=== PATIENT | male | born 1995 | race Caucasian/White ===

== ENCOUNTER 2020-11-16 04:33 | Emergency (ER) | payer OTHER, SELFPAY ==
--- NOTE | 2020-11-16 04:35 | ED.ALCOHOL ---
HPI - Alcohol General Chief Complaint: Toxicology Problem Stated Complaint: Can't sleep, night sweats, stopped drinking Time Seen by Provider: 11/16/20 04:35 Source: patient Mode of arrival: Ambulatory Limitations: no limitations History of Present Illness HPI narrative: 25-year-old male daily smoker and heavy drinker presents with a chief complaint of difficulty sleeping, agitation for the past few nights. He states that he binge drinking up to 30 beers per day until about a week ago when he quit cold turkey and soon developed significant symptoms including headache, nausea, abdominal pain, tremors and sweating. He wrote it out at home on his own for 5 or 6 days and presents tonight because of difficulty with sleeping. He states he has gone through withdrawals in the past but has never had seizures. He denies any detox or rehab in his history. He denies any use of street drugs. He has had no recent trauma. MD complaint: alcohol withdrawal Last drink: days (ago) Chronic alcohol use: Yes Previous visits for alcohol intoxication: No Recent trauma: No Treatments prior to arrival: none Related Data Previous Rx's Medication Instructions Recorded chlordiazepoxide HCl See Rx Instructions .ROUTE 11/16/20 .COMPLEX PRN #32 cap ondansetron 4 mg PO TID-QID PRN #10 tab 11/16/20 potassium chloride 20 meq PO BID #10 tab 11/16/20 Allergies Allergy/AdvReac Type Severity Reaction Status Date / Time No Known Drug Allergies Allergy Verified 11/16/20 04:44 Review of Systems Constitutional Constitutional: Denies chills, Denies fatigue, Denies fever(s), Denies frequent falls, Denies lethargy and Denies weakness Eyes Eyes: Denies change in vision, Denies eye discharge, Denies irritation and Denies loss of vision ENT Ears, Nose, Mouth, and Throat: Denies change in voice, Denies dizziness, Denies neck pain, Denies sore throat and Denies throat swelling Cardiovascular Cardiovascular: Denies chest pain, Denies irregular heart rhythm, Denies lightheadedness, Denies palpitations, Denies dyspnea, Denies dyspnea on exertion and Denies orthopnea Respiratory Respiratory: Denies cough, Denies dyspnea, Denies dyspnea on exertion and Denies wheezing Gastrointestinal Gastrointestinal: Denies abdominal pain, Denies change in bowel habits, Denies diarrhea, Denies nausea and Denies vomiting Musculoskeletal Musculoskeletal: Denies neck pain and Denies numbness Integumentary/Breasts Skin/Breast: Denies pruritus, Denies erythema, Denies rash and Denies wounds Neurologic Neurologic: Denies behavioral changes, Denies confusion, Denies dizziness, Denies frequent falls, Denies loss of vision, Denies numbness and Denies weakness Psychiatric Psychiatric: Denies anxiety, Denies behavioral changes, Denies confusion, Denies depression, Reports irritability, Denies homicidal ideation and Denies suicidal ideation Endocrine Endocrine: Denies fatigue, Denies flushing and Denies palpitations Hematologic/Lymphatic Hematologic/Lymphatic: Denies easy bruising Allergic/Immunologic Allergic/Immunologic: Denies urticaria, Denies throat swelling and Denies wheezing Patient History Social History Smoking Status: Current every day smoker Smoking Status: Current every day smoker alcohol intake frequency: 3 or more drinks per day Alcohol type: beer Substance Use Type: marijuana Exam Narrative Exam Narrative: GENERAL: [25] year old patient appears stated age. Well-nourished, well-developed patient, in mild distress. Appears a bit agitated, GCS 15 HEAD: Atraumatic. Normocephalic. EYES: Pupils equal round and reactive. Extraocular motions intact. No scleral icterus. No injection or drainage. ENT: Nose without bleeding, purulent drainage. Throat without erythema, tonsillar hypertrophy or exudate. Airway patent. NECK: Trachea midline. Non tender CARDIOVASCULAR: Regular rate and rhythm without murmurs, gallops, or rubs. RESPIRATORY: Clear to auscultation. Breath sounds equal bilaterally. No wheezes, rales, or rhonchi. GASTROINTESTINAL: Abdomen soft, non-tender, nondistended. EXTREMITIES: No edema or joint tenderness. BACK: Nontender without deformity or crepitance. No flank tenderness. NEURO: AOx3. SKIN: No rash or erythema of visible areas Initial Vital Signs Initial Vital Signs: Vital Signs Temperature 98.3 F 11/16/20 04:49 Pulse Rate 72 11/16/20 04:49 Respiratory Rate 17 11/16/20 04:49 Blood Pressure 143/91 H 11/16/20 04:49 Pulse Oximetry 97 11/16/20 04:49 Course Course Course Narrative: Cate for Alcohol Withdrawal from [employer] on 11/16/2020 All calculations should be rechecked by clinician prior to use RESULT SUMMARY: 9 points Patients with scores ?9 may require medication for withdrawal. INPUTS: Nausea/vomiting ?> 1 = Mild nausea and no vomiting Tremor ?> 2 = (More severe symptoms) Paroxysmal sweats ?> 0 = No sweat visible Anxiety ?> 2 = (More severe symptoms) Agitation ?> 2 = (More severe symptoms) Tactile disturbances ?> 0 = None Auditory disturbances ?> 0 = Not present Visual disturbances ?> 0 = Not present Headache/fullness in head ?> 2 = Mild Orientation/clouding of sensorium ?> 0 = Oriented, can do serial additions Orders Ordered: Discontinued Medications Sodium Chloride (Normal Saline 0.9%) 1,000 mls @ 1,000 mls/hr IV BOLUS ONE Stop: 11/16/20 05:53 Last Infusion: 11/16/20 06:18 Dose: 0 mls/hr Documented by: Admin: 11/16/20 05:07 Dose: 1,000 mls/hr Documented by: ANDREA Thiamine HCl 200 mg/ Sodium (Chloride) 52 mls @ 208 mls/hr IV NOW ONE Stop: 11/16/20 04:55 Last Infusion: 11/16/20 05:40 Dose: 0 mls/hr Documented by: Admin: 11/16/20 05:18 Dose: 208 mls/hr Documented by: ANDREA Phenobarbital (Phenobarbital 65 Mg/Ml Vial) 260 mg IV NOW ONE Stop: 11/16/20 04:55 Last Admin: 11/16/20 05:07 Dose: 260 mg Documented by: ANDREA Potassium Chloride (Potassium Chloride 20 Meq Tab) 40 meq PO NOW ONE Stop: 11/16/20 05:18 Last Admin: 11/16/20 05:20 Dose: 40 meq Documented by: ANDREA Vital Signs Vital signs: Vital Signs - 8 hr 11/16/20 04:49 11/16/20 05:00 11/16/20 05:31 Temperature 98.3 F Pulse Rate 77 69 79 Respiratory Rate 18 18 20 Blood Pressure 145/97 H 148/98 H 168/101 H Pulse Oximetry 99 99 99 11/16/20 06:01 Temperature Pulse Rate 79 Respiratory Rate 21 Blood Pressure 160/93 H Pulse Oximetry 100 MDM - Alcohol Lab Data Result diagrams: 11/16/20 04:45 11/16/20 04:45 Labs: Lab Results 11/16/20 11/16/20 Range/Units 04:45 04:45 WBC 7.6 (4.5-11.0) X10^3/uL RBC 4.54 (4.5-5.9) X10^6/uL Hgb 15.6 (13.5-17.5) g/dL Hct 44.9 (41-53) % MCV 98.8 (80-100) fL MCH 34.4 H (26-34) PG MCHC 34.8 (30-36) % RDW 12.9 (11.6-14.8) % Plt Count 188 (150-400) X10^3/uL Neut % (Auto) 73.9 (50-75) % Lymph % (Auto) 12.4 L (25-40) % [place] % (Auto) 9.1 (3-14) % Eos % (Auto) 2.0 (2-4) % Baso % (Auto) 2.6 H (0-2) % Neut # (Auto) 5600 (8478-4778) /uL Lymph # (Auto) 900 L (8904-2161) /uL [place] # (Auto) 700 (0-900) /uL Eos # (Auto) 200 (0-450) /uL Baso # (Auto) 200 H (0-100) /uL Sodium 131 L (137-145) mmol/L Potassium 3.0 L (3.4-5.1) mmol/L Chloride 91 L (98-107) mmol/L Carbon Dioxide 27 (22-32) mmol/L BUN 13 (9-20) mg/dL Creatinine 0.71 (0.66-1.25) mg/dL Estimated GFR > 60.0 (>60) mL/min BUN/Creatinine Ratio 18.3 (6-22) Glucose 99 (70-100) mg/dL Calcium 10.0 (8.4-10.2) mg/dL Total Bilirubin 1.4 H (0.2-1.3) mg/dL AST 217 H (17-59) IU/L ALT 179 H (<50) IU/L Alkaline Phosphatase 93 (38-126) U/L Total Protein 8.5 H (6.3-8.2) g/dL Albumin 5.1 H (3.5-5.0) g/dL Globulin 3.4 (1.7-4.1) g/dL Albumin/Globulin Ratio 1.5 (1.0-2.8) MDM Narrative Medical decision making narrative: Patient feels much better after the above-stated therapies. He has good insight and demonstrates capacity to make his own decisions. His CIWA score is quite low and we are a few days removed from his severe symptoms. No sign of alcohol ketoacidosis or other significant metabolic derangement. His potassium is a bit low and has been addressed here in the department along with prescriptions. His questions have been answered to his apparent satisfaction. Return precautions given. Discharge Plan Departure Patient Disposition: Home Clinical Impression: Acute hypokalemia Alcohol withdrawal syndrome Qualifiers: Complication of substance-induced condition: uncomplicated Qualified Code(s): F10.230 - Alcohol dependence with withdrawal, uncomplicated Instructions: DI for Alcohol Use Disorder Activity Restrictions/Additional Instructions: *You have been diagnosed with [ alcohol withdrawal and low potassium ] *What to do: *Take medications as directed *Follow up with your primary care provider in 2-3 days, call for an appointment. Let them know you were seen in the Emergency Department and that we ask that you be seen in follow up *Return to ER if you should have any new, worsening or concerning symptoms Prescriptions: New potassium chloride 20 mEq tablet extended release 20 meq PO BID Qty: 10 RF: 0 ondansetron 4 mg tablet,disintegrating 4 mg PO TID-QID PRN (Reason: nausea and vomiting) Qty: 10 RF: 0 chlordiazepoxide HCl 25 mg capsule See Rx Instructions .ROUTE .COMPLEX PRN (Reason: alcohol withdrawal) Qty: 32 RF: 0 Referrals: [facility] [Outside] [facility] [Outside] [facility] [Outside] [facility] [Outside]
[2020-11-16 04:49] VITALS: BP 143/91; BP 145/97; PULSE 72; PULSE 77; RESP 17; RESP 18; TEMP 36.8; O2SAT 97; O2SAT 99; BMI 29.5
[2020-11-16 05:00] VITALS: BP 148/98; PULSE 69; RESP 18; O2SAT 99
[2020-11-16 05:07] LABS: Add Manual Diff / Slide Review NO; Basophils Absolute Auto 200 /uL (0-100); Basophils Percent Auto 2.6 % (0-2); Eosinophils Absolute Auto 200 /uL (0-450); Hematocrit 44.9 % (41-53); Hemoglobin 15.6 g/dL (13.5-17.5); Lymphocytes Absolute Auto 900 /uL (1100-4500); Lymphocytes Percent Auto 12.4 % (25-40); Mean Corpuscular HGB Conc 34.8 % (30-36); Mean Corpuscular Hemoglobin 34.4 PG (26-34); Mean Corpuscular Volume 98.8 fL (80-100); Monocytes Absolute Auto 700 /uL (0-900); Monocytes Percent Auto 9.1 % (3-14); Neutrophils Absolute Auto 5600 /uL (1500-7000); Neutrophils Percent Auto 73.9 % (50-75); Platelet Count 188 X10^3/uL (150-400); Red Blood Cell Count 4.54 X10^6/uL (4.5-5.9); Red Cell Distribution Width 12.9 % (11.6-14.8); White Blood Cell Count 7.6 X10^3/uL (4.5-11.0)
[2020-11-16] MEDS: PHENobarbital 65 MG/ML VIAL 260 MG IV (05:07)
[2020-11-16] MEDS: SODIUM CHLORIDE 0.9% 1,000 ML 1000 ML IV (05:07)
[2020-11-16 05:10] LABS: Alanine Aminotransferase 179 IU/L (<50); Albumin 5.1 g/dL (3.5-5.0); Albumin Globulin Ratio 1.5 (1.0-2.8); Alkaline Phosphatase 93 U/L (38-126); Aspartate Aminotransferase 217 IU/L (17-59); BUN Creatinine Ratio 18.3 (6-22); Bilirubin Total 1.4 mg/dL (0.2-1.3); Blood Urea Nitrogen 13 mg/dL (9-20); Carbon Dioxide 27 mmol/L (22-32); Chloride 91 mmol/L (98-107); Estimated Glomerular Filt Rate > 60.0 mL/min (>60); Globulin 3.4 g/dL (1.7-4.1); Glucose 99 mg/dL (70-100); HEMOLYSIS 15 (0-50); Sodium 131 mmol/L (137-145); Total Protein 8.5 g/dL (6.3-8.2)
[2020-11-16] MEDS: THIAMINE 200 MG in SODIUM CHLORIDE 0.9% 50 ML 208 ML IV (05:18)
[2020-11-16] MEDS: POTASSIUM CHLORIDE 20 MEQ TAB 40 MEQ PO (05:20)
[2020-11-16 05:31] VITALS: BP 168/101; PULSE 79; RESP 20; O2SAT 99
[2020-11-16 06:01] VITALS: BP 160/93; PULSE 79; RESP 21; O2SAT 100
== END 2020-11-16 06:22 | disposition home or self-care (01) ==
PROVIDERS: Emergency Provider Emergency Medicine
DX: E87.6 Hypokalemia (principal); F10.230 Alcohol dependence with withdrawal, uncomplicated
CPT/HCPCS: 36415; 80053; 85025; 96361; 96374; 99284; J2560

== ENCOUNTER 2022-04-29 21:31 | Inpatient (IN) | payer OTHER, MEDICAID, SELFPAY ==
[2022-04-29 21:40] VITALS: BP 147/78; PULSE 95; RESP 22; O2SAT 99; BMI 23.1
[2022-04-29 21:43] VITALS: PULSE 91; RESP 25; O2SAT 98
[2022-04-29 22:00] VITALS: BP 150/88; PULSE 78; RESP 21; O2SAT 98
[2022-04-29 22:06] LABS: Add Manual Diff / Slide Review NO; Basophils Absolute Auto 0 /uL (0-100); Basophils Percent Auto 0.7 % (0-2); Eosinophils Absolute Auto 0 /uL (0-450); Eosinophils Percent Auto 0.3 % (2-4); Hematocrit 40.8 % (41-53); Hemoglobin 14.1 g/dL (13.5-17.5); Lymphocytes Absolute Auto 1000 /uL (1100-4500); Lymphocytes Percent Auto 18.4 % (25-40); Mean Corpuscular HGB Conc 34.6 % (30-36); Mean Corpuscular Hemoglobin 33.9 PG (26-34); Mean Corpuscular Volume 97.7 fL (80-100); Monocytes Absolute Auto 900 /uL (0-900); Monocytes Percent Auto 16.1 % (3-14); Neutrophils Absolute Auto 3600 /uL (1500-7000); Neutrophils Percent Auto 64.5 % (50-75); Platelet Count 152 X10^3/uL (150-400); Red Blood Cell Count 4.18 X10^6/uL (4.5-5.9); Red Cell Distribution Width 14.7 % (11.6-14.8); White Blood Cell Count 5.6 X10^3/uL (4.5-11.0)
[2022-04-29] MEDS: SODIUM CHLORIDE 0.9% 1,000 ML 1000 ML IV (22:08)
[2022-04-29] MEDS: THIAMINE 200 MG in SODIUM CHLORIDE 0.9% 100 ML 408 MG IV (22:08)
[2022-04-29 22:14] LABS: Alanine Aminotransferase 186 IU/L (<50); Albumin 4.7 g/dL (3.5-5.0); Albumin Globulin Ratio 1.5 (1.0-2.8); Alkaline Phosphatase 81 U/L (38-126); Aspartate Aminotransferase 120 IU/L (17-59); BUN Creatinine Ratio 9.4 (6-22); Bilirubin Total 0.8 mg/dL (0.2-1.3); Blood Urea Nitrogen 6 mg/dL (9-20); Calcium 9.5 mg/dL (8.4-10.2); Carbon Dioxide 25 mmol/L (22-32); Chloride 97 mmol/L (98-107); Estimated Glomerular Filt Rate > 60 mL/min (>60); Globulin 3.1 g/dL (1.7-4.1); Glucose 141 mg/dL (70-100); HEMOLYSIS 21 (0-50); Lipase 68 U/L (23-300); Magnesium 1.8 mg/dL (1.6-2.3); Potassium 3.7 mmol/L (3.4-5.1); Sodium 134 mmol/L (137-145); Total Protein 7.8 g/dL (6.3-8.2)
[2022-04-29 22:30] VITALS: BP 164/78; PULSE 89; RESP 30; O2SAT 98
[2022-04-29] MEDS: PHENobarbital 65 MG/ML VIAL 260 MG IV (22:36)
[2022-04-29 22:37] LABS: Ethanol (ETOH) < 10 mg/dL
[2022-04-29 22:38] LABS: COVID19 -Nasal RAPID Negative (Negative)
--- NOTE | 2022-04-29 22:47 | ED_ITS ---
HPI - Alcohol General Chief Complaint: Toxicology Problem Stated Complaint: wants meds for alcohol dt's Time Seen by Provider: 04/29/22 21:47 Source: patient and family Mode of arrival: Ambulatory History of Present Illness HPI narrative: 26M daily smoker and heavy drinker with history of alcohol abuse, withdrawals and DTs presents requesting help for his symptoms. He is a very heavy drinker and states that he has been drinking 2 cases of 60 oz beers per day but has not had any in about 2 days. He had been seen and evaluated at a few other emergency departments but left against advice and is here requesting help. He feels agitated and a bit lightheaded, he feels shaky and nauseated. He does have a resting tremor. He states that he occasionally has visual and auditory hallucinations and even tactile on occasion. He has been through DTs in the past and most recent episode was a few months ago. Related Data Previous Rx's Medication Instructions Recorded chlordiazepoxide HCl 25 mg capsule See Rx Instructions .Route 11/16/20 .COMPLEX PRN alcohol withdrawal #32 caps ondansetron 4 mg disintegrating 4 mg PO TID-QID PRN nausea and 11/16/20 tablet vomiting #10 tabs potassium chloride 20 mEq 20 meq PO BID #10 tabs 11/16/20 tablet,extended release Allergies Allergy/AdvReac Type Severity Reaction Status Date / Time No Known Drug Allergies Allergy Verified 11/16/20 04:44 Review of Systems Review of Systems Narrative: GENERAL: See HPI HEENT: Denies sinus pain, ear pain, sore throat, difficulty swallowing, dizz iness. RESPIRATORY: See HPI CARDIOVASCULAR: See HPI GASTROINTESTINAL: See HPI : Denies dysuria, frequency, incontinence, hematuria, urinary retention. MUSCULOSKELETAL: denies weakness, joint pain, or bony pain SKIN: Denies rash, skin lesions, or other NEUROLOGIC: See HPI PSYCHIATRIC: No concerning psychosocial issues. 12 point review of systems is negative except for those stated above Patient History Social History Smoking Status: Current every day smoker Smoking Status: Current every day smoker alcohol intake frequency: 3 or more drinks per day Alcohol type: beer Substance Use Type: marijuana Exam Narrative Exam Narrative: GENERAL: [26] year old patient appears stated age. Well-developed patient, in moderate distress. Agitated and restless HEAD: Atraumatic. Normocephalic. EYES: Pupils equal round and reactive. Extraocular motions intact. No scleral icterus. No injection or drainage. ENT: Nose without bleeding, purulent drainage. Throat without erythema, tonsillar hypertrophy or exudate. Airway patent. NECK: Trachea midline. Non tender CARDIOVASCULAR: Tachycardia but regular rhythm without murmurs, gallops, or rubs. RESPIRATORY: Clear to auscultation. Breath sounds equal bilaterally. No wheezes, rales, or rhonchi. GASTROINTESTINAL: Abdomen soft, non-tender, nondistended. EXTREMITIES: No edema or joint tenderness. BACK: Nontender without deformity or crepitance. No flank tenderness. NEURO: AOx3. Resting tremor SKIN: No rash or erythema of visible areas Initial Vital Signs Initial Vital Signs: Vital Signs Pulse Rate 95 H 04/29/22 21:40 Respiratory Rate 22 04/29/22 21:40 Blood Pressure 147/78 H 04/29/22 21:40 Pulse Oximetry 99 04/29/22 21:40 Oxygen Delivery Method 04/29/22 21:40 Course Course Course Narrative: PETRA-Joselo for Alcohol Withdrawal from [employer] on 04/30/2022 All calculations should be rechecked by clinician prior to use RESULT SUMMARY: 23 points Patients with scores >=0 frequently require medication for withdrawal, and may also require admission to the ICU for observation for seizures or development of delirium tremens, and more frequent medication dosing. INPUTS: Nausea/vomiting ?> 3 = (More severe symptoms) Tremor ?> 4 = Moderate, with patient's arms extended Paroxysmal sweats ?> 2 = (More severe symptoms) Anxiety ?> 4 = Moderately anxious, or guarded, so anxiety is inferred Agitation ?> 4 = Moderately fidgety and restless Tactile disturbances ?> 2 = Mild itching, pin and needles, burning, or numbness Auditory disturbances ?> 2 = Mild harshness or ability to frighten Visual disturbances ?> 2 = Mild sensitivity Headache/fullness in head ?> 0 = Not Present Orientation/clouding of sensorium ?> 0 = Oriented, can do serial additions Orders Ordered: ED Orders 04/29/22 21:47 Complete Blood Count AUTO DIFF Stat Comprehensive Metabolic Panel Stat Ethanol (ETOH) Stat Lipase Stat Magnesium Stat Urine Drug Screen, Rapid Stat 04/29/22 22:15 COVID19 -Nasal RAPID/Pre-Proc Stat Acetaminophen (Acetaminophen 325 Mg Tablet) 650 mg PO Q8H PRN PRN Reason: Fever/Mild Pain (1-3) Enoxaparin Sodium (Enoxaparin 40 Mg/0.4 Ml Syringe) 40 mg SUBCUT DAILY [facility] Folic Acid (Folic Acid 1 Mg Tablet) 1 mg PO DAILY [facility] Thiamine HCl 500 mg/ Sodium (Chloride) 105 mls @ 420 mls/hr IV TID [facility] Multivitamins (Multivitamin 1 Tablet) 1 tab PO DAILY [facility] Ondansetron HCl (Ondansetron 4 Mg/2 Ml Inj) 4 mg IV Q8HR PRN PRN Reason: Nausea And Vomiting Phenobarbital (Phenobarbital 65 Mg/Ml Vial) 130 mg IV Q30MIN PRN PRN Reason: Agitation Sodium Chloride (Sodium Chloride 0.9% Flush) 10 ml IV PRN PRN PRN Reason: Flush Sodium Chloride (Sodium Chloride 0.9% Flush) 10 ml IV BID BERTRAND Discontinued Medications Sodium Chloride (Normal Saline 0.9%) 1,000 mls @ 1,000 mls/hr IV BOLUS ONE Stop: 04/29/22 22:46 Last Infusion: 04/29/22 23:37 Dose: 0 mls/hr Documented By: Admin: 04/29/22 22:08 Dose: 1,000 mls/hr Documented By: MARIE Thiamine HCl 200 mg/ Sodium (Chloride) 102 mls @ 408 mls/hr IV NOW ONE Stop: 04/29/22 21:48 Last Infusion: 04/29/22 22:25 Dose: 0 mls/hr Documented By: Admin: 04/29/22 22:08 Dose: 408 mls/hr Documented By: MARIE Phenobarbital (Phenobarbital 65 Mg/Ml Vial) 260 mg IV NOW ONE Stop: 04/29/22 22:08 Last Admin: 04/29/22 22:36 Dose: 260 mg Documented By: MARIE Phenobarbital (Phenobarbital 65 Mg/Ml Vial) 130 mg IV NOW ONE Stop: 04/29/22 23:11 Last Admin: 04/29/22 23:32 Dose: 130 mg Documented By: KALI Phenobarbital (Phenobarbital 65 Mg/Ml Vial) 130 mg IV NOW ONE Stop: 04/30/22 00:21 Last Admin: 04/30/22 00:27 Dose: 130 mg Documented By: OW Thiamine HCl (Thiamine 100 Mg Tablet) 100 mg PO DAILY BERTRAND Stop: 05/03/22 09:01 Vital Signs Vital signs: Vital Signs - 8 hr 04/29/22 21:40 04/29/22 21:43 04/29/22 22:00 Pulse Rate 95 H 91 H Respiratory Rate 22 25 H Blood Pressure 147/78 H 150/88 H Pulse Oximetry 99 98 Oxygen Delivery Method Room Air Room Air 04/29/22 22:00 04/29/22 22:30 04/29/22 22:30 Pulse Rate 78 89 Respiratory Rate 21 30 H Blood Pressure 164/78 H Pulse Oximetry 98 98 Oxygen Delivery Method Room Air Room Air 04/29/22 23:00 04/29/22 23:30 Pulse Rate 75 70 Respiratory Rate 19 15 Blood Pressure 144/85 H 147/79 H Pulse Oximetry 99 97 Oxygen Delivery Method Room Air Room Air MDM - Alcohol Lab Data Result diagrams: 04/29/22 21:47 04/29/22 21:47 Labs: Lab Results 04/29/22 04/29/22 04/29/22 Range/Units 21:47 21:47 22:15 WBC 5.6 (4.5-11.0) X10^3/uL RBC 4.18 L (4.5-5.9) X10^6/uL Hgb 14.1 (13.5-17.5) g/dL Hct 40.8 L (41-53) % MCV 97.7 (80-100) fL MCH 33.9 (26-34) PG MCHC 34.6 (30-36) % RDW 14.7 (11.6-14.8) % Plt Count 152 (150-400) X10^3/uL Neut % (Auto) 64.5 (50-75) % Lymph % (Auto) 18.4 L (25-40) % [place] % (Auto) 16.1 H (3-14) % Eos % (Auto) 0.3 L (2-4) % Baso % (Auto) 0.7 (0-2) % Neut # (Auto) 3600 (8015-7801) /uL Lymph # (Auto) 1000 L (0586-9667) /uL [place] # (Auto) 900 (0-900) /uL Eos # (Auto) 0 (0-450) /uL Baso # (Auto) 0 (0-100) /uL Sodium 134 L (137-145) mmol/L Potassium 3.7 (3.4-5.1) mmol/L Chloride 97 L (98-107) mmol/L Carbon Dioxide 25 (22-32) mmol/L BUN 6 L (9-20) mg/dL Creatinine 0.64 L (0.66-1.25) mg/dL Estimated GFR > 60 (>60) mL/min BUN/Creatinine Ratio 9.4 (6-22) Glucose 141 H (70-100) mg/dL Calcium 9.5 (8.4-10.2) mg/dL Magnesium 1.8 (1.6-2.3) mg/dL Total Bilirubin 0.8 (0.2-1.3) mg/dL AST 120 H (17-59) IU/L ALT 186 H (<50) IU/L Alkaline Phosphatase 81 (38-126) U/L Total Protein 7.8 (6.3-8.2) g/dL Albumin 4.7 (3.5-5.0) g/dL Globulin 3.1 (1.7-4.1) g/dL Albumin/Globulin Ratio 1.5 (1.0-2.8) Lipase 68 (23-300) U/L Ethyl Alcohol < 10 ( - 10) mg/dL SARS-CoV-2 (PCR) Negative (Negative) Discharge Plan Departure Patient Disposition: Admitted As Inpatient Clinical Impression: Delirium tremens Admit Date/Time: 04/30/22 00:26 Admit Provider: Sam Desai
[2022-04-29 23:00] VITALS: BP 144/85; PULSE 75; RESP 19; O2SAT 99
[2022-04-29 23:30] VITALS: BP 147/79; PULSE 70; RESP 15; O2SAT 97
[2022-04-29] MEDS: PHENobarbital 65 MG/ML VIAL 130 MG IV (23:32)
[2022-04-30] VITALS (50 sets, daily range): BP systolic 104–148; BP diastolic 62–87; PULSE 58–100; RESP 12–54; TEMP 36.7–37; O2SAT 94–100; BMI 23.1
--- NOTE | 2022-04-30 00:02 | PC.NURSE ---
Pt's mother pressed call light and when this RN answered, pt was sitting in bed restlessly. He stated, that he wanted to leave. Pt's mother reported that he was talking as if someone was in the room conversing with him. This RN redirected him to why he was in the ED and pt responded by stating that he understood and would stay. After conversation pt continues to sit up straight in bed fidgeting his hands and staring at staff at the nurse's station. Pt is close to nurse's station and this RN will continue to monitor pt. Pt's mother and pt know to use the call light if anything is needed.
[2022-04-30] MEDS: PHENobarbital 65 MG/ML VIAL 130 MG IV ×7 (00:27→05:34)
--- NOTE | 2022-04-30 01:13 | P.HP_ITS ---
History of Present Illness History of Present Illness Date Patient Seen: 04/30/22 Time Patient Seen: 01:00 Chief complaint: wants meds for alcohol dt's Narrative: Mr. Poe is a 26M with H significant alcohol abuse who presents requesting detox. He has been hospitalized for alcohol withdrawal in the past, has had DTs, possible previous alcoholic seizure. No history of being intubated. He has been to rehab multiple times. He has previously taken a medication to decrease cravings, but said it did not work for him. Over the past few days he has been to multiple other hospitals in the area and states he left against medical advice. Today he states he is in a better mental space and is willing to stay for treatment. He drinks at least a case of tall boys daily. His last drink was 3-4 days ago. He was having hallucinations yesterday. He was feeling headache, nausea, diaphoresis, and trembling. In the ED workup was done, vitals notable for heart rate in the 90s, and blood pressure in the 140-160s systolic. Labs notable for WBC 5.6 ,hgb 14.1, plts 152. Creatinine 0.64. AST 120/ALT 186. EtOH negative. He was given three doses of phenobarbital in the ED 260mg, followed by 130mg two times. He was feeling much improved with resolution of headache, sweats, and only mild nausea, and tremors. He was admitted for further treatment. Family history: denies any significant alcohol abuse in parents Social history: drinking history as above Patient History Family & Social History Safety & Behavioral: Feels Safe in Current Yes Environment Suicidal Ideation Description None Suicide Plan Description No Plan Tobacco & Substance use: Smoking Status Current every day smoker alcohol intake frequency 3 or more drinks per day Substance Use Type marijuana Meds Home Medications and Allergies Home Medications Medication Instructions Recorded Confirmed Type chlordiazepoxide HCl 25 mg capsule See Rx Instructions .Route 11/16/20 Rx .COMPLEX PRN alcohol withdrawal #32 caps ondansetron 4 mg disintegrating 4 mg PO TID-QID PRN nausea and 11/16/20 Rx tablet vomiting #10 tabs potassium chloride 20 mEq 20 meq PO BID #10 tabs 11/16/20 Rx tablet,extended release Allergies Allergy/AdvReac Type Severity Reaction Status Date / Time No Known Drug Allergies Allergy Verified 11/16/20 04:44 Review of Systems Review of Systems Narrative: 14 systems reviewed and negative aside from what is noted in HPI Exam Vital Signs (past 8 hours): - 04/29/22 21:40 04/29/22 21:43 04/29/22 22:00 Pulse Rate 95 H 91 H Respiratory Rate 22 25 H Blood Pressure 147/78 H 150/88 H Pulse Oximetry 99 98 Oxygen Delivery Method Room Air Room Air 04/29/22 22:00 04/29/22 22:30 04/29/22 22:30 Pulse Rate 78 89 Respiratory Rate 21 30 H Blood Pressure 164/78 H Pulse Oximetry 98 98 Oxygen Delivery Method Room Air Room Air 04/29/22 23:00 04/29/22 23:30 04/30/22 00:30 Pulse Rate 75 70 72 Respiratory Rate 19 15 23 Blood Pressure 144/85 H 147/79 H 142/83 H Pulse Oximetry 99 97 99 Oxygen Delivery Method Room Air Room Air Room Air Oxygen Delivery Method Room Air Narrative Exam Narrative: GEN: fidgeting HEENT: moist mucous membranes, PERRL NECK: trachea midline, no JVD PULM: clear bilaterally, no wheezes, rhonchi, rales CV: regular rate and rhythm, no murmurs ABD: soft, nontender, nondistended, no organomegaly EXT: warm and well perfused with no edema NEURO: awake, alert, oriented, mild tremor Objective Labs Result Diagrams: 04/29/22 21:47 04/29/22 21:47 Labs: Laboratory Results - last 24 hr 04/29/22 04/29/22 04/29/22 21:47 21:47 22:15 WBC 5.6 RBC 4.18 L Hgb 14.1 Hct 40.8 L MCV 97.7 MCH 33.9 MCHC 34.6 RDW 14.7 Plt Count 152 Neut % (Auto) 64.5 Lymph % (Auto) 18.4 L [place] % (Auto) 16.1 H Eos % (Auto) 0.3 L Baso % (Auto) 0.7 Neut # (Auto) 3600 Lymph # (Auto) 1000 L [place] # (Auto) 900 Eos # (Auto) 0 Baso # (Auto) 0 Sodium 134 L Potassium 3.7 Chloride 97 L Carbon Dioxide 25 BUN 6 L Creatinine 0.64 L Estimated GFR > 60 BUN/Creatinine Ratio 9.4 Glucose 141 H Calcium 9.5 Magnesium 1.8 Total Bilirubin 0.8 AST 120 H ALT 186 H Alkaline Phosphatase 81 Total Protein 7.8 Albumin 4.7 Globulin 3.1 Albumin/Globulin Ratio 1.5 Lipase 68 Ethyl Alcohol < 10 SARS-CoV-2 (PCR) Negative Assessment & Plan Assessment & Plan narrative: Mr. Hood is a 26M with alcohol abuse who presents with alcohol withdrawal and delirium tremens. 1. Acute alcohol withdrawal, with DTs, with alcohol abuse causing hepatitis -patient improved greatly with phenobarb in the ED -for now continue with phenobarb PRN with 130mg IV q30min PRN for RASS>0 -once patient more stable, plan to transition to possible taper -given DTs ordered for high dose thiamine with 500mg IV TID, for 2 days, and then can decrease to lower dose -ordered MVI, folate -SW consult in the morning -patient states not interested in rehab on [place], he is planning to move to [place] in a few months and will consider rehab then -advised patient to refrain completely from alcohol -mildly elevated AST/ALT, continue to trend in AM to make sure downtrending CODE: Full Proxy: Perla Hood, mother I have utilized all available resources to reconcile the patient's home medications Time Spent With Patient Critical Care time: I spent a total of [] minutes of critical care time on this patient's care today; this time is exclusive of procedural time. Quality MIPS - Admit I confirm the patient?s Advance Care Plan is present, Code status is documented, Surrogate decision maker is in patient?s record [If Yes, STOP here]: Yes
[2022-04-30] MEDS: NICOTINE 14 PATCH 14 MG TOP (03:06)
[2022-04-30 03:41] LABS: UR Morphine/Opiate cutoff 300 Negative (Negative); Ur Creatinine 50 (Normal); Ur Specific Gravity >1.030 (Normal); Urine Amphetamines Negative (Negative); Urine Barbiturates Positive (Negative); Urine Benzodiazepines Positive (Negative); Urine Cocaine Negative (Negative); Urine MDMA Negative (Negative); Urine Methadone Negative (Negative); Urine Methamphetamines Negative (Negative); Urine Oxycodone Negative (Negative); Urine Phencyclidine Negative (Negative); Urine Tetrahydrocannabinol Positive (Negative); Urine Tricyclic Antidepressant Negative (Negative); Urine pH 5 (Normal)
--- NOTE | 2022-04-30 05:51 | PC.NURSE ---
Addendum entered by Elizabeth Cueva R.N. 04/30/22 07:38: As preceptor, I agree with Heather RNs assessment, interventions, documentation, and evaluation. Original Note: Pt arrived in ICU around 0130 this morning. A&OX4, lungs clear, heart rate and rhythm WNL. Vitals unremarkable. Having hallucinations and slight tremors. Pt was calm and cooperative upon arrival, but soon became agitated, anxious and paranoid. Has attempted to leave AMA twice. Hospitalist and security were called, along with ED doc pt was familiar with to calm him down. Had a spell where he was calm, but soon became agitated, paranoid and anxious again. Trying to control with phenobarbital. Has received 6 doses of 130 mg IV phenobarbital since coming to ICU. Pt currently in room with mom, still anxious, paranoid and agitated but intermittently redirectable.
[2022-04-30 06:45] LABS: Alanine Aminotransferase 162 IU/L (<50); Albumin 4.4 g/dL (3.5-5.0); Albumin Globulin Ratio 1.6 (1.0-2.8); Alkaline Phosphatase 82 U/L (38-126); Aspartate Aminotransferase 117 IU/L (17-59); BUN Creatinine Ratio 5.2 (6-22); Bilirubin Total 0.8 mg/dL (0.2-1.3); Bilirubin Unconjugated 0.7 mg/dL (0.0-1.1); Blood Urea Nitrogen 3 mg/dL (9-20); Calcium 8.8 mg/dL (8.4-10.2); Carbon Dioxide 25 mmol/L (22-32); Chloride 97 mmol/L (98-107); Estimated Glomerular Filt Rate > 60 mL/min (>60); Globulin 2.7 g/dL (1.7-4.1); Glucose 81 mg/dL (70-100); HEMOLYSIS 16 (0-50); Magnesium 1.7 mg/dL (1.6-2.3); Phosphorous 1.5 mg/dL (2.5-4.5); Potassium 3.7 mmol/L (3.4-5.1); Sodium 132 mmol/L (137-145); Total Protein 7.1 g/dL (6.3-8.2)
[2022-04-30] MEDS: chlordiazePOXIDE 25 MG CAPSULE 75 MG PO ×3 (07:51→21:00)
[2022-04-30] MEDS: LORazepam 1 MG TABLET PO (07:52)
--- NOTE | 2022-04-30 08:10 | P.TELICUCN_ITS ---
History of Present Illness Consult details IF CAMERA ACTIVATED, patient seen via real-time interactive audiovisual communication: Camera activated Date Patient Seen: 04/30/22 Chief complaint: wants meds for alcohol dt's Reason for consult: Alcohol withrawal Requesting provider: Duke Doe Consent obtained for tele-accounting supervisor care: Yes Patient Location: ICU Provider location (State): [place] Other participants/roles: RN Narrative: Pateint is a 26 year old male with history of alcohol abuse who is admitted to ICU for alcohol detox. Per report, patient has been hospitalized for alcohol withdrawal and DTs in the past. Last drink was 3 days ago. On admission, he was started on phenobarb therapy and attempting to leave AMA. Decision was made to admit pateint to ICU anticipating patient may need precedex infusion. Subjectively patient reports feeling fine. Denies chest pain, N/V, fever/chils, vision changes, headache. He reports hearing voice telling him to steal car. Started on librium therapy. [facility] Social History household members: family Smoking Status: Current every day smoker Current Medications Current Medications Medications: Home Medications chlordiazepoxide HCl 25 mg capsule See Rx Instructions .Route .COMPLEX PRN alcohol withdrawal #32 caps 11/16/20 [Rx] ondansetron 4 mg disintegrating tablet 4 mg PO TID-QID PRN nausea and vomiting #10 tabs 11/16/20 [Rx] potassium chloride 20 mEq tablet,extended release 20 meq PO BID #10 tabs 11/16/20 [Rx] Visit Medications (administered) Generic Name Dose Route Start Last Admin Trade Name Talibq PRN Reason Stop Dose Admin Chlordiazepoxide HCl 75 mg 04/30/22 08:00 04/30/22 07:51 Chlordiazepoxide 25 Mg Capsule PO 75 mg Q6H BERTRAND Administration Lorazepam 0 mg 04/30/22 06:53 04/30/22 07:52 Lorazepam 1 Mg Tablet PO 2 mg CIWAPRN PRN Administration Alcohol Withdrawal Protocol Phenobarbital 130 mg 04/30/22 01:46 04/30/22 05:34 Phenobarbital 65 Mg/Ml Vial IV 130 mg Q30MIN PRN Administration Agitation Exam Vital Signs (past 8 hours): - 04/30/22 00:30 04/30/22 01:31 04/30/22 01:35 Temperature Pulse Rate 72 80 Respiratory Rate 23 15 Blood Pressure 142/83 H 136/82 Pulse Oximetry 99 100 Oxygen Delivery Method Room Air Room Air Room Air Oxygen Flow Rate 04/30/22 04:00 04/30/22 01:32 04/30/22 05:00 Temperature 98.2 F 98.1 F 98.6 F Pulse Rate 80 75 75 Respiratory Rate 25 H 22 22 Blood Pressure 131/71 146/82 H 121/73 Pulse Oximetry 99 99 99 Oxygen Delivery Method Oxygen Flow Rate 0 Oxygen Delivery Method Room Air Oxygen Flow Rate 0 Narrative Exam Narrative: Anxious but following commands Objective Labs Result Diagrams: 04/29/22 21:47 04/30/22 05:43 Labs: Laboratory Results - last 24 hr 04/29/22 04/29/22 04/29/22 21:47 21:47 22:15 WBC 5.6 RBC 4.18 L Hgb 14.1 Hct 40.8 L MCV 97.7 MCH 33.9 MCHC 34.6 RDW 14.7 Plt Count 152 Neut % (Auto) 64.5 Lymph % (Auto) 18.4 L [place] % (Auto) 16.1 H Eos % (Auto) 0.3 L Baso % (Auto) 0.7 Neut # (Auto) 3600 Lymph # (Auto) 1000 L [place] # (Auto) 900 Eos # (Auto) 0 Baso # (Auto) 0 Sodium 134 L Potassium 3.7 Chloride 97 L Carbon Dioxide 25 BUN 6 L Creatinine 0.64 L Estimated GFR > 60 BUN/Creatinine Ratio 9.4 Glucose 141 H Calcium 9.5 Phosphorus Magnesium 1.8 Total Bilirubin 0.8 Conjugated Bilirubin Unconjugated Bilirubin AST 120 H ALT 186 H Alkaline Phosphatase 81 Total Protein 7.8 Albumin 4.7 Globulin 3.1 Albumin/Globulin Ratio 1.5 Lipase 68 Nasal Screen MRSA (PCR) U Opiates 300ng/mL cut Ur Oxycodone Screen Urine Methadone Screen Ur Barbiturates Screen U Tricyclic Antidepress Ur Phencyclidine Scrn Ur Amphetamines Screen U Methamphetamines Scrn Ur MDMA Scrn (Ecstasy) U Benzodiazepines Scrn Urine Cocaine Screen U Marijuana (THC) Screen Ethyl Alcohol < 10 SARS-CoV-2 (PCR) Negative 04/30/22 04/30/22 04/30/22 01:40 01:54 05:43 WBC RBC Hgb Hct MCV MCH MCHC RDW Plt Count Neut % (Auto) Lymph % (Auto) [place] % (Auto) Eos % (Auto) Baso % (Auto) Neut # (Auto) Lymph # (Auto) [place] # (Auto) Eos # (Auto) Baso # (Auto) Sodium 132 L Potassium 3.7 Chloride 97 L Carbon Dioxide 25 BUN 3 L Creatinine 0.58 L Estimated GFR > 60 BUN/Creatinine Ratio 5.2 L Glucose 81 Calcium 8.8 Phosphorus 1.5 L Magnesium 1.7 Total Bilirubin 0.8 Conjugated Bilirubin 0.0 Unconjugated Bilirubin 0.7 AST 117 H ALT 162 H Alkaline Phosphatase 82 Total Protein 7.1 Albumin 4.4 Globulin 2.7 Albumin/Globulin Ratio 1.6 Lipase Nasal Screen MRSA (PCR) Negative for mrsa U Opiates 300ng/mL cut Negative Ur Oxycodone Screen Negative Urine Methadone Screen Negative Ur Barbiturates Screen Positive H U Tricyclic Antidepress Negative Ur Phencyclidine Scrn Negative Ur Amphetamines Screen Negative U Methamphetamines Scrn Negative Ur MDMA Scrn (Ecstasy) Negative U Benzodiazepines Scrn Positive H Urine Cocaine Screen Negative U Marijuana (THC) Screen Positive H Ethyl Alcohol SARS-CoV-2 (PCR) Assessment & Plan Assessment & Plan narrative: # Alcohol withdrawal -- Currently 3-4 days out -- Discussed with Dr. Doe and will plan to start patient on librium therapy w/ prn ativan and precedex infusion -- Cont thiamine, folic acid, and MTV -- Ativan as needed per [facility] protocol -- Given delusional thought which also raises concern for psychiatric disorder. Would recommend psych consultation to rule out schizophrenia or bipolar disorder. Time Spent With Patient Critical Care time: I spent a total of 32 minutes of critical care time on this patient's care today; this time is exclusive of procedural time.
--- NOTE | 2022-04-30 08:15 | PC.NURSE ---
Addendum entered by Sara Villa R.N. 04/30/22 18:39: Evening - Patient has been mostly resting peacefully in bed second half of shift with eyes closed and even, unlabored breathing. Vital signs stable. Wakes up appropriately when stimulated. Assisted to bathroom with standby assist. Patient polite and cooperative with care. Mother back at bedside. Call light within reach. Addendum entered by Sara Villa R.N. 04/30/22 13:16: 1315 - hospital tray service worker attempted to have meeting with patient, but patient too sleepy at that time. Is now waking up in room. Sitting up in bed eating lunch. Currently cooperative. Original Note: Shift Note 0700 - Patient agitated and anxious. Focusing on vital sign monitor in room attempting to manipulate it by holding breath or breathing fast. Mother in room. Patient refusing all medications and interventions. Security outside of room and physician talking with mother about plan. 0730 - Introduced self to patient and mother. Patient stated he has been poisoned. Continues to appear anxious. Patient removed all monitors and is pacing around room. Turned in room monitor to standby without patient complaint and will safely reapproach when calmer to put monitors back on. Offered anxiety medications which were refused. 0800 - Patient asking if he can have a prescription for librium by mouth which he states he has taken before and it has helped him. Dr. Doe notified of this and put in new order for patient. Patient given librium as ordered and po ativan as ordered for ciwa protocol. 0830 - Patient got into bed and began dozing. Awakens appropriately and is calm and cooperative at this time. Allowed this nurse to do physical assessment and place monitors back on. Room quiet and Mother meeting with case management regarding patient.
--- NOTE | 2022-04-30 09:42 | CM.SWNOTE ---
FITTING ROOM MAINTENANCE MECHANIC Note Reviewed chart. Patient sleeping; per RN should not be woken at this time. Patient acutely withdrawing and there is possibility for acute psychosis. Patient admits to visual, auditory and tactile hallucinations Report from mom Perla: Patient lives with she and patient's dad, has been unemployed for the 6 years that patient has lived with parents. Patient has drank heavily for at least this time possibly longer per mom Mom Perla tells this FITTING ROOM MAINTENANCE MECHANIC that over the last 48 hrs hallucinations have increased and patient often feels someone is trying to kill him. Patient reports people hiding in the bushes and admits to commanding auditory hallucinations that tell him to break into cars to steal Patient agreed to mom taking him to [facility] for detox and [facility] treatment; patient left AMA and was wandering their parking lot for 3 hours, half naked, told mom upon his pick out hand that men were in the bushes waiting to ambush him Patient has no outpatient supports at this time Mom admits patient does not eat or sleep regularly and that I know he is going to if he keeps this up Patient reports drinking approx 2 cases daily of tallboys which are 16oz cans of beer. Patient has stopped cold turkey a number of times per mom's report but refuses to go to outpatient or inpatient treatment No known hx of mental illness, however, biological father is adopted so paternal genetic hx unknown . Significant hx of ETOH in family Placed call to [facility]OA/DCR requesting their eval and input re Jose M's Law (?) as this FITTING ROOM MAINTENANCE MECHANIC feels strongly thus far that patient is a danger to self and others d/t persistent and increased alcohol use and sx of acute psychosis ie auditory, visual and tactile hallucinations LYNDON Felipe
[2022-04-30] MEDS: THIAMINE 500 MG in SODIUM CHLORIDE 0.9% 100 ML 420 MG IV ×3 (10:05→21:12)
[2022-04-30] MEDS: ENOXAPARIN 40 MG/0.4 ML SYRINGE SUBCUT (10:06)
[2022-04-30] MEDS: SODIUM CHLORIDE 0.9% FLUSH 10 ML IV ×2 (10:07→21:07)
--- NOTE | 2022-04-30 10:54 | CM.DANOTE ---
Initial DCP Assessment Note Pt is a 26 yo male, resident of [place], arrives to the ED after recently leaving AMA from [facility], asking for meds to assist with alcohol withdrawal. In addition, patient endorses persistent and increasing auditory, visual and tactile hallucinations. PCP: Camila Alfaro Payer: Harriet/STARR Reviewed chart; patient sleeping finally as he has been awake for days w/increasing agitation and delirium/hallucinations Spoke w/patient's mom Perla outside of the room, see prior SQL DATABASE ADMINISTRATOR note for detail. Perla admits fear for patient's life d/t his ongoing, heavy alcohol use. Patient has refused to seek drug treatment, outpatient or inpatient Patient's Dad is 15 yrs sober, prior alcoholic, was court mandated to attend [facility] rehab, discharged and learned his brother had from complications related to heavy alcohol use and has not drank since. Mom states she does not drink. Explained to mom Perla this SQL DATABASE ADMINISTRATOR's concern that patient meets criteria for grave disability related to ongoing, heavy alcohol use w/continued refusal to seek treatment. Discussed Jose M's Law, briefly. In addition, patient may have an undiagnosed psychiatric disorder Now working closely with MAURA Chen who has been assigned to this case for evaluation of appropriateness for detainment under Jose M's Law: Involuntary Treatment Act.... Per hca.wa.gov- In 2016, House Bill 1713 made changes to the behavioral health system and significantly amended RCW 71.05 and RCW 71.34 ? effective October 30, 2017 ? to include substance use in the [place]AN[place]AK[place] process. LYNDON Felipe Discharge Planning/Care Management CM Discharge Assessment Start: 04/30/22 10:51 Freq: Status: Active Protocol: Document 04/30/22 10:52 LEXA (Rec: 04/30/22 10:54 LEXA [id number]) Discharge Planning Assessment Assigned Press Operator Assistant LYNDON Pearson DPOA/Assigned Designee Name aden Rodarte Contact Information [phone] Advance Directives? No History Provided By Parents,Medical Record Prior Living Arrangements House Household Members family Type of transporation used prior to Drives own vehicle admit Independent with ADL's Yes Is patient alert and oriented? Yes Patient/Family Preference Drug/Alcohol Rehab Barriers to Discharge Yes Comment Patient presents in withdrawal w/active DTs, agitation and admits to auditory, visual and tactile hallucinations Discharge Plan Drug Rehabilitation Transportation Arrangement Will require BLS if detained under Jose M's Law Referrals Initiated Other Additional Comment DCR
[2022-04-30] MEDS: POTASSIUM PHOSPHATE 45 MMOL in SODIUM CHLORIDE 0.9% 500 ML 64.375 MMOL IV (11:32)
[2022-04-30] MEDS: MAGNESIUM SULFATE 2 GM/50 ML PIGGYBACK IV (11:35)
--- NOTE | 2022-04-30 15:17 | CM.SWNOTE ---
SERGEANT MISSILE CREWMAN Note Spoke w/Diane at [facility] this morning; learned that patient did not need to be medically cleared from the acute care floor before a DCR could dispatch (for Jose M's Law specifically) so MAURA Lovelace was dispatched to this case and all clinical was faxed to Adela this morning to F [phone] per request Working with MALINA Ellison and Adela Chen, DCR/VOA throughout the day Attempted to facilitate eval via IPAD at approx 1230 between Adela and patient and patient was not awake enough to participate. This afternoon, received call from Adela stating patient needed to be medically cleared by the hospitalist in order to be detained to [facility]. Adela requested the DCR dispatch request be rescinded and attempted again once hospitalist could attest to medical clearance. Placed call to [facility] to complete the rescind request Adela explained patient was being seriously considered for detainment and suggested if patient leaves A, staff call the Forensic Accountant's office to discuss concerns about this patient and his imminent harm to self and others while detoxing Spoke w/ Dr Doe who indicated patient was not medically cleared today unless patient was transferring to a facility that could medically manage patient's withdrawal. Dr Doe considering a psych eval if patient remains here Tuesday Summarized above to patient's mom Perla. Patient sleeping soundly LYNDON Felipe
--- NOTE | 2022-04-30 20:20 | PM.ICURNDS ---
- Date Patient Seen: 04/30/22 Time Patient Seen: 20:20 :: This patient was seen via real time interactive two-way audiovisual telecommunication. Note: Patient admitted for alcohol detox. Started on librium therapy this morning. CIWA score remains low. Awaiting for patient to be more awake to participate with psych consultation. Will continue librium therapy per protocol. D/w RN.
[2022-05-01] VITALS (26 sets, daily range): BP systolic 95–135; BP diastolic 63–91; PULSE 55–78; RESP 12–36; TEMP 35.8–36.8; O2SAT 94–100
[2022-05-01] MEDS: chlordiazePOXIDE 25 MG CAPSULE 75 MG PO ×4 (01:37→19:27)
[2022-05-01 05:23] LABS: Calcium 8.5 mg/dL (8.4-10.2); Carbon Dioxide 25 mmol/L (22-32); Chloride 101 mmol/L (98-107); Estimated Glomerular Filt Rate > 60 mL/min (>60); Glucose 83 mg/dL (70-100); HEMOLYSIS < 15 (0-50); Potassium 3.7 mmol/L (3.4-5.1); Sodium 134 mmol/L (137-145)
[2022-05-01 05:28] LABS: Add Manual Diff / Slide Review NO; Basophils Absolute Auto 0 /uL (0-100); Eosinophils Absolute Auto 100 /uL (0-450); Eosinophils Percent Auto 1.6 % (2-4); Hematocrit 41.2 % (41-53); Hemoglobin 14.2 g/dL (13.5-17.5); Lymphocytes Absolute Auto 800 /uL (1100-4500); Lymphocytes Percent Auto 21.4 % (25-40); Mean Corpuscular HGB Conc 34.6 % (30-36); Mean Corpuscular Hemoglobin 33.6 PG (26-34); Mean Corpuscular Volume 97.3 fL (80-100); Monocytes Absolute Auto 500 /uL (0-900); Monocytes Percent Auto 12.5 % (3-14); Neutrophils Absolute Auto 2500 /uL (1500-7000); Neutrophils Percent Auto 63.5 % (50-75); Platelet Count 119 X10^3/uL (150-400); Red Blood Cell Count 4.23 X10^6/uL (4.5-5.9); Red Cell Distribution Width 14.5 % (11.6-14.8); White Blood Cell Count 3.9 X10^3/uL (4.5-11.0)
[2022-05-01 05:32] LABS: BUN Creatinine Ratio 3.6 (6-22); Blood Urea Nitrogen 2 mg/dL (9-20)
[2022-05-01] MEDS: SODIUM CHLORIDE 0.9% FLUSH 10 ML IV (09:02)
[2022-05-01] MEDS: FOLIC ACID 1 MG TABLET PO (09:02)
[2022-05-01] MEDS: ENOXAPARIN 40 MG/0.4 ML SYRINGE SUBCUT (09:02)
[2022-05-01] MEDS: THIAMINE 500 MG in SODIUM CHLORIDE 0.9% 100 ML 420 MG IV (09:02)
[2022-05-01] MEDS: MULTIVITAMIN 1 TABLET 1 TAB PO (09:02)
--- NOTE | 2022-05-01 09:36 | P.TELICUPN_ITS ---
Subjective Subjective IF CAMERA ACTIVATED, patient seen via real-time interactive audiovisual communication: Camera activated Date Patient Seen: 05/01/22 Consent obtained for tele-adjunct instructor in economics care: Yes Patient Location: ICU Provider location (State): [place] Other participants/roles: RN Interval history: No acute issues overnight. On librium therapy. No precedex infusion required. Stable to transfer to floor care. Current Medications Current Medications Medications: Home Medications chlordiazepoxide HCl 25 mg capsule See Rx Instructions .Route .COMPLEX PRN alcohol withdrawal #32 caps 11/16/20 [Rx] ondansetron 4 mg disintegrating tablet 4 mg PO TID-QID PRN nausea and vomiting #10 tabs 11/16/20 [Rx] potassium chloride 20 mEq tablet,extended release 20 meq PO BID #10 tabs 11/16/20 [Rx] Visit Medications (administered) Generic Name Dose Route Start Last Admin Trade Name Freq PRN Reason Stop Dose Admin Chlordiazepoxide HCl 75 mg 04/30/22 08:00 05/01/22 09:16 Chlordiazepoxide 25 Mg Capsule PO 75 mg Q6H BERTRAND Administration Enoxaparin Sodium 40 mg 04/30/22 09:00 05/01/22 09:02 Enoxaparin 40 Mg/0.4 Ml Syringe SUBCUT 40 mg DAILY BERTRAND Administration Folic Acid 1 mg 04/30/22 09:00 05/01/22 09:02 Folic Acid 1 Mg Tablet PO 1 mg DAILY BERTRAND Administration Thiamine HCl 500 mg/ Sodium 105 mls @ 420 mls/hr 04/30/22 09:00 05/01/22 09:02 Chloride IV 420 mls/hr TID BERTRAND Administration Lorazepam 0 mg 04/30/22 06:53 04/30/22 07:52 Lorazepam 1 Mg Tablet PO 2 mg CIWAPRN PRN Administration Alcohol Withdrawal Protocol Multivitamins 1 tab 04/30/22 09:00 05/01/22 09:02 Multivitamin 1 Tablet PO 1 tab DAILY BERTRAND Administration Phenobarbital 130 mg 04/30/22 01:46 04/30/22 05:34 Phenobarbital 65 Mg/Ml Vial IV 130 mg Q30MIN PRN Administration Agitation Sodium Chloride 10 ml 04/30/22 09:00 05/01/22 09:02 Sodium Chloride 0.9% Flush IV 10 ml BID BERTRAND Administration Objective Labs Result Diagrams: 05/01/22 04:19 05/01/22 04:19 Labs: Laboratory Results - last 24 hr 05/01/22 05/01/22 04:19 04:19 WBC 3.9 L RBC 4.23 L Hgb 14.2 Hct 41.2 MCV 97.3 MCH 33.6 MCHC 34.6 RDW 14.5 Plt Count 119 L Neut % (Auto) 63.5 Lymph % (Auto) 21.4 L [place] % (Auto) 12.5 Eos % (Auto) 1.6 L Baso % (Auto) 1.0 Neut # (Auto) 2500 Lymph # (Auto) 800 L [place] # (Auto) 500 Eos # (Auto) 100 Baso # (Auto) 0 Sodium 134 L Potassium 3.7 Chloride 101 Carbon Dioxide 25 BUN 2 L Creatinine 0.56 L Estimated GFR > 60 BUN/Creatinine Ratio 3.6 L Glucose 83 Calcium 8.5 Exam Vital Signs (past 8 hours): - 05/01/22 02:00 05/01/22 02:00 05/01/22 02:30 Temperature Pulse Rate 62 63 Respiratory Rate 20 15 Blood Pressure 106/74 Pulse Oximetry 97 95 Oxygen Delivery Method 05/01/22 03:00 05/01/22 03:00 05/01/22 03:30 Temperature Pulse Rate 58 L 61 Respiratory Rate 14 13 Blood Pressure 101/68 Pulse Oximetry 98 97 Oxygen Delivery Method 05/01/22 04:00 05/01/22 04:00 05/01/22 04:36 Temperature 97.9 F Pulse Rate 60 61 67 Respiratory Rate 14 13 36 H Blood Pressure 116/71 Pulse Oximetry 96 96 Oxygen Delivery Method 05/01/22 04:00 05/01/22 05:00 05/01/22 05:00 Temperature Pulse Rate 55 L Respiratory Rate 14 Blood Pressure 107/65 Pulse Oximetry 98 Oxygen Delivery Method Room Air 05/01/22 05:30 05/01/22 06:00 05/01/22 06:00 Temperature Pulse Rate 62 61 Respiratory Rate 13 13 Blood Pressure 114/66 Pulse Oximetry 96 96 Oxygen Delivery Method 05/01/22 06:30 05/01/22 07:00 05/01/22 07:00 Temperature Pulse Rate 59 L 64 Respiratory Rate 14 14 Blood Pressure 113/64 Pulse Oximetry 97 95 Oxygen Delivery Method 05/01/22 07:30 Temperature Pulse Rate 63 Respiratory Rate 15 Blood Pressure Pulse Oximetry 96 Oxygen Delivery Method Oxygen Delivery Method Room Air Oxygen Flow Rate 0 Assessment & Plan Assessment & Plan narrative: # Alcohol withdrawal -- On librium therapy w/ ativan as needed -- Cont thiamine, folic acid, and MTV? -- Ativan as needed per CIWA protocol -- Pending psych evaluation # Acute encephalopathy -- Secondary to alcohol withdrawal vs psychiatric disorder -- Pending psych evaluation -- Alcohol withdrawal management as above -- Cont frequent reorinetation # Thrombocytopenia -- Secondary to alcohol abuse causing BM suppression -- Daily CBC D/w RN at bedside. STable to transfer to floor if CIWA score remains low and not on precedex infusion. Time Spent With Patient Time with patient: less than 30 minutes Critical Care time: I spent a total of [] minutes of critical care time on this patient's care today; this time is exclusive of procedural time.
--- NOTE | 2022-05-01 10:17 | PM.PN.1 ---
Subjective Subjective Date Patient Seen: 05/01/22 Interval history: 26-year-old gentleman with significant alcohol he who drinks up to 2 cases of beer per day who was admitted early yesterday morning with alcohol. Patient and his mom and daughter in the room. He and mom both report hallucinations during his last episode of withdrawal and his current admission for alcohol withdrawal. Prior to that he had never occurred. He states that on average he drinks a case of beer daily. Some days he will drink up to 2 cases. He will occasionally drink white claw. He denies any liquor use. He states he has been drinking this heavily for the last 2 and half years. If he skips a day of drinking, he feels physically ill. Today, he denies any hallucinations/diaphoresis last nausea. His appetite is good. He did wake up with headache that has since resolved. Exam Vital Signs (past 8 hours): - 05/01/22 02:30 05/01/22 03:00 05/01/22 03:00 Temperature Pulse Rate 63 58 L Respiratory Rate 15 14 Blood Pressure 101/68 Pulse Oximetry 95 98 Oxygen Delivery Method 05/01/22 03:30 05/01/22 04:00 05/01/22 04:00 Temperature 97.9 F Pulse Rate 61 60 61 Respiratory Rate 13 14 13 Blood Pressure 116/71 Pulse Oximetry 97 96 96 Oxygen Delivery Method 05/01/22 04:36 05/01/22 04:00 05/01/22 05:00 Temperature Pulse Rate 67 Respiratory Rate 36 H Blood Pressure 107/65 Pulse Oximetry Oxygen Delivery Method Room Air 05/01/22 05:00 05/01/22 05:30 05/01/22 06:00 Temperature Pulse Rate 55 L 62 Respiratory Rate 14 13 Blood Pressure 114/66 Pulse Oximetry 98 96 Oxygen Delivery Method 05/01/22 06:00 05/01/22 06:30 05/01/22 07:00 Temperature Pulse Rate 61 59 L Respiratory Rate 13 14 Blood Pressure 113/64 Pulse Oximetry 96 97 Oxygen Delivery Method 05/01/22 07:00 05/01/22 07:30 05/01/22 08:00 Temperature Pulse Rate 64 63 Respiratory Rate 14 15 Blood Pressure Pulse Oximetry 95 96 Oxygen Delivery Method Room Air 05/01/22 08:00 05/01/22 08:02 05/01/22 08:02 Temperature Pulse Rate 72 68 Respiratory Rate 24 26 H Blood Pressure 95/64 Pulse Oximetry 99 99 Oxygen Delivery Method 05/01/22 08:30 05/01/22 09:01 05/01/22 09:03 Temperature Pulse Rate 70 75 Respiratory Rate 24 19 Blood Pressure Pulse Oximetry 100 94 99 Oxygen Delivery Method 05/01/22 09:03 05/01/22 09:30 05/01/22 10:00 Temperature Pulse Rate 72 Respiratory Rate 26 H Blood Pressure 129/91 H 130/68 Pulse Oximetry 100 Oxygen Delivery Method 05/01/22 10:00 Temperature Pulse Rate 71 Respiratory Rate 26 H Blood Pressure Pulse Oximetry 100 Oxygen Delivery Method Oxygen Delivery Method Room Air Oxygen Flow Rate 0 Narrative Exam Narrative: GEN: Alert and oriented x 3, NAD HEENT:NC, Face symmetric CHEST: Respiratory excursions symmetric, CTAB CV: RRR, no M/R/G ABD: Soft, NT/ND, BT present in all 4 quadrants, no organomegaly or masses EXTR: warm, well perfused, no C/C/E SKIN: warm and dry, no rash NEURO: Alert and oriented x 3, nonfocal Objective Labs Result Diagrams: 05/01/22 04:19 05/01/22 04:19 Labs: Laboratory Results - last 24 hr 05/01/22 05/01/22 04:19 04:19 WBC 3.9 L RBC 4.23 L Hgb 14.2 Hct 41.2 MCV 97.3 MCH 33.6 MCHC 34.6 RDW 14.5 Plt Count 119 L Neut % (Auto) 63.5 Lymph % (Auto) 21.4 L [place] % (Auto) 12.5 Eos % (Auto) 1.6 L Baso % (Auto) 1.0 Neut # (Auto) 2500 Lymph # (Auto) 800 L [place] # (Auto) 500 Eos # (Auto) 100 Baso # (Auto) 0 Sodium 134 L Potassium 3.7 Chloride 101 Carbon Dioxide 25 BUN 2 L Creatinine 0.56 L Estimated GFR > 60 BUN/Creatinine Ratio 3.6 L Glucose 83 Calcium 8.5 PFSH Social History household members: family Smoking Status: Current every day smoker Assessment & Plan Assessment & Plan narrative: 1. Acute alcohol withdrawal, with delirium tremens in the setting of chronic alcohol dependence Alcohol withdrawal scores overnight have been 0-2. He remains on Librium 75 mg every 6 hours. Will transition to 75 mg every 8 hours today. Last lorazepam required yesterday morning at 8:00 a.m. continue multivitamin, folate, and vitamin. 2. Alcohol induced hepatitis No abdominal pain. LFTs were improving between April 29 and April 30. Will repeat labs in the morning. 3. Alcohol induced leukopenia Mild at 3.9. 4. Alcohol-induced thrombocytopenia Platelet count 152 2 days ago to 119 today. Will monitor. 5. Hypophosphatemia Phosphorus level was 1.5 yesterday. Will repeat today and replete as needed Code status Full Prophylaxis Low arlen score Disposition Pending Time Spent With Patient Critical Care time: I spent a total of [] minutes of critical care time on this patient's care today; this time is exclusive of procedural time.
[2022-05-01] MEDS: NICOTINE 7 MG PATCH TOP (13:31)
--- NOTE | 2022-05-01 14:03 | PC.NURSE ---
Pt accidentally pulled out IV during shower, per Provider ok to leave without IV access
--- NOTE | 2022-05-01 14:22 | CM.SWNOTE ---
TELECOM ASSISTANT Note According to Dr Avalos, patient is medically cleared. Placed call to [facility] to discuss dispatch for possible detainment under [employer] M's Law-now that patient is medically cleared. Faxed medical attestation from to [facility], signed by Dr Avalos. This TELECOM ASSISTANT was referred to management information systems director DCR Adela Patterson to discuss this case Adela Chen: P# [phone] F# [phone] Explained to Adlea: Patient up, ambulating independently in room, and A+O able to participate in conversation. Adela advises this TELECOM ASSISTANT review events yesterday, review concern for patient's safety, and discuss plans/options for today. If patient is voluntarily going to seek treatment than he would not need an eval from the DCR. Spoke w/patient and his parents in room this morning; reviewed this TELECOM ASSISTANT's concern about patient's safety d/t his hx of heavy alcohol use, severe alcohol withdrawal symptoms and refusal (thus far) to seek or go through with [facility] treatment. When asked what outcome patient is hopeful for today, patient says he plans to remain sober and wants to secure a treatment bed in [place] at the same drug rehab facility his father attended Asked if patient would consider inpatient at [facility] vs intensive outpatient while awaiting his move to [place] and patient was agreeable to this. Reminded patient and family that securing an inpatient vs outpatient treatment option may take some time depending on availability of services and all stated understanding Provided a list of inpatient [facility] treatment facilities and a list of outpatient [facility] resources, patient told this TELECOM ASSISTANT give it to my mom, I don't have a phone right now. This TELECOM ASSISTANT strongly encouraged patient to complete this follow through on his own, as sobriety and seeking treatment is his responsibility, patient agreed Updated RN Jennyfer that patient is voluntarily going to seek treatment and so does not meet criteria at this time to be considered for detainment to a drug and alcohol treatment program. Updated DCR Adela Chen and she suggested this TELECOM ASSISTANT team call [facility] if patient's status changes and/or if additional input/advice needed re voluntary vs detainment Plan: DC home w/parents, likely w/in 24 hrs, patient voluntary at this time, provided resources for inpatient and outpatient [facility] treatment options LYNDON Felipe
[2022-05-01] MEDS: THIAMINE 100 MG TABLET 500 MG PO ×2 (15:26→20:55)
[2022-05-02 04:00] VITALS: BP 114/66; PULSE 83; RESP 17; TEMP 36.2; O2SAT 99
[2022-05-02] MEDS: chlordiazePOXIDE 25 MG CAPSULE 75 MG PO (04:10)
--- NOTE | 2022-05-02 07:26 | P.PN_ITS ---
Subjective Subjective Date Patient Seen: 05/02/22 Interval history: 26-year-old gentleman with significant alcohol he who drinks up to 2 cases of beer per day who is presently hospital day # 2 admitted with alcohol withdrawal Patient reports he is feeling well today. He has no nausea or tremors. No headache. He feels his withdrawal symptoms have resolved. He is ultimately planning to move back to [place] but states he thinks he will look for a rehab facility coli. He presently lives in [place]. Exam Vital Signs (past 8 hours): - 05/02/22 04:00 Temperature 97.1 F L Pulse Rate 83 Respiratory Rate 17 Blood Pressure 114/66 Pulse Oximetry 99 Oxygen Delivery Method Room Air Oxygen Flow Rate 0 Narrative Exam Narrative: GEN: Alert and oriented x 3, NAD HEENT:NC, Face symmetric CHEST: Respiratory excursions symmetric, CTAB CV: RRR, no M/R/G ABD: Soft, NT/ND, BT present in all 4 quadrants, no organomegaly or masses EXTR: warm, well perfused, no C/C/E SKIN: warm and dry, no rash NEURO: Alert and oriented x 3, nonfocal Objective Labs Result Diagrams: 05/01/22 04:19 05/01/22 04:19 Labs: Laboratory Results - last 24 hr 05/01/22 00:00 Phosphorus 3.0 D PFSH Social History household members: family Smoking Status: Current every day smoker Assessment & Plan Assessment & Plan narrative: 1. Acute alcohol withdrawal, with delirium tremens in the setting of chronic alcohol dependence Alcohol withdrawal scores overnight have been 0-1.? He remains on Librium 75 mg every 8 hours.? Last lorazepam required on the morning of 04/30. continue multivitamin, folate, and vitamin. He is very hopeful to discharge later today. It has been 8 days since his last alcohol intake. Will give a single dose of 50 mg of Librium this morning. If he remains asymptomatic through today will plan to discharge home this evening 2. Alcohol induced hepatitis No abdominal pain.? LFTs were improving between April 29 and April 30.? Will repeat labs in the morning. 3. Alcohol induced leukopenia Mild at 3.9. Await this morning's labs. 4. Alcohol-induced thrombocytopenia Platelet count 152 2 days ago to 119 today.? Await this morning's labs. 5. Hypophosphatemia Phosphorus level was 1.5 on April 30. On repeat yesterday it was normalized at 3.0 Code status Full Prophylaxis Low arlen score Disposition Possible discharge later today. Time Spent With Patient Critical Care time: I spent a total of [] minutes of critical care time on this patient's care today; this time is exclusive of procedural time.
[2022-05-02 08:00] VITALS: BP 108/60; PULSE 68; RESP 17; TEMP 36.8; O2SAT 100
[2022-05-02] MEDS: MULTIVITAMIN 1 TABLET 1 TAB PO (08:44)
[2022-05-02] MEDS: chlordiazePOXIDE 25 MG CAPSULE 50 MG PO (08:44)
[2022-05-02] MEDS: FOLIC ACID 1 MG TABLET PO (08:44)
[2022-05-02] MEDS: THIAMINE 100 MG TABLET 500 MG PO (08:45)
[2022-05-02] MEDS: NICOTINE 7 MG PATCH TOP (08:45)
[2022-05-02 09:34] LABS: Add Manual Diff / Slide Review NO; Basophils Absolute Auto 0 /uL (0-100); Basophils Percent Auto 0.5 % (0-2); Eosinophils Absolute Auto 100 /uL (0-450); Eosinophils Percent Auto 1.7 % (2-4); Hematocrit 43.8 % (41-53); Lymphocytes Absolute Auto 1100 /uL (1100-4500); Lymphocytes Percent Auto 23.8 % (25-40); Mean Corpuscular HGB Conc 34.1 % (30-36); Mean Corpuscular Hemoglobin 33.2 PG (26-34); Mean Corpuscular Volume 97.2 fL (80-100); Monocytes Absolute Auto 500 /uL (0-900); Monocytes Percent Auto 10.2 % (3-14); Neutrophils Absolute Auto 2900 /uL (1500-7000); Neutrophils Percent Auto 63.8 % (50-75); Platelet Count 138 X10^3/uL (150-400); Red Blood Cell Count 4.51 X10^6/uL (4.5-5.9); Red Cell Distribution Width 14.9 % (11.6-14.8); White Blood Cell Count 4.5 X10^3/uL (4.5-11.0)
[2022-05-02 09:45] LABS: Alanine Aminotransferase 287 IU/L (<50); Albumin 4.8 g/dL (3.5-5.0); Albumin Globulin Ratio 1.5 (1.0-2.8); Alkaline Phosphatase 86 U/L (38-126); Aspartate Aminotransferase 281 IU/L (17-59); Bilirubin Total 0.5 mg/dL (0.2-1.3); Blood Urea Nitrogen 5 mg/dL (9-20); Calcium 9.9 mg/dL (8.4-10.2); Carbon Dioxide 27 mmol/L (22-32); Chloride 97 mmol/L (98-107); Estimated Glomerular Filt Rate > 60 mL/min (>60); Globulin 3.2 g/dL (1.7-4.1); Glucose 86 mg/dL (70-100); HEMOLYSIS < 15 (0-50); Potassium 3.9 mmol/L (3.4-5.1); Sodium 135 mmol/L (137-145)
[2022-05-02 12:00] VITALS: BP 123/70; PULSE 79; RESP 19; TEMP 36.3; O2SAT 98
--- NOTE | 2022-05-02 16:00 | PM.DS.1 ---
History of Present Illness History of Present Illness Date Patient Seen: 05/02/22 Chief complaint: wants meds for alcohol dt's Narrative: Per H&P: Mr. Poe is a 26M with H significant alcohol abuse who presents requesting detox. He has been hospitalized for alcohol withdrawal in the past, has had DTs, possible previous alcoholic seizure. No history of being intubated. He has been to rehab multiple times. He has previously taken a medication to decrease cravings, but said it did not work for him. Over the past few days he has been to multiple other hospitals in the area and states he left against medical advice. Today he states he is in a better mental space and is willing to stay for treatment. He drinks at least a case of tall boys daily. His last drink was 3-4 days ago. He was having hallucinations yesterday. He was feeling headache, nausea, diaphoresis, and trembling. In the ED workup was done, vitals notable for heart rate in the 90s, and blood pressure in the 140-160s systolic. Labs notable for WBC 5.6 ,hgb 14.1, plts 152. Creatinine 0.64. AST 120/ALT 186. EtOH negative. He was given three doses of phenobarbital in the ED 260mg, followed by 130mg two times. He was feeling much improved with resolution of headache, sweats, and only mild nausea, and tremors. He was admitted for further treatment. Discharge Providers Provider Date of admission: 04/30/22 00:26 Discharge Date: 05/02/22 Primary care physician: Camila Alfaro MD Consults: 04/30/22 03:39 Consult to Tele-diving judge Routine Comment: Consulting Provider: [facility] [employer] Reason for consultation: Ecosystem Ecology Professor services Has provider been notified: Yes Discharge provider: Maria Teresa Avalos MD Summary Hospital Course Discharge Diagnosis: 1. Acute alcohol withdrawal, with delirium tremens in the setting of chronic alcohol dependence--resolved Pt was initially started on phenobarbitol d/t severe agitation/DTs. Ecosystem Ecology Professor consult performed. He improved and on 04/30, was placed on scheduled librium 75 mg q6h w/lorazepam PRN. W/d sxs were much better controlled w/score of 0-4 on 05/01. Therefore librium was weaned to 75 mg q8h. Scores remained 0-1, and he was anxious to d/c. Therefore he was given a single dose of librium 50 mg on the morning of d/c. He remained asyptomatic throughout the day and at d/c had a w/d score of 0. He is not d/c'd w/any additional benzodiazepines. His last alcohol intake was 8 days prior to admission. He was encouraged to remain on MVI/thiamine/folate. He is seeking inpatient treatment locally and plans to move back to [facility] afterwards. 2. Alcohol induced hepatitis - improving No abdominal pain. LFTs improved somewhat during his hospital stay. If he abstains from alcohol, this should continue to improve. 3. Alcohol induced leukopenia, improving Should improve w/abstinence from alcohol. 4. Alcohol-induced thrombocytopenia -improving Improving at d/c. 5. Hypophosphatemia - resolved Phosphorus level was 1.5 on April 30.? On labs 05/01 it had normalized at 3.0 Status at Discharge Cognitive/behavioral status at discharge: at baseline, oriented Functional status at discharge: independent ambulation Overall status at discharge: patient is progressing back to baseline Exam Vital Signs (past 8 hours): Oxygen Delivery Method Room Air Oxygen Flow Rate 0 Objective Labs Result Diagrams: 05/02/22 09:20 05/02/22 09:20 [facility] Social History household members: family Smoking Status: Current every day smoker Discharge Plan Discharge Plan Patient Disposition: Home Provider Discharge Comment: Abstain from alcohol Contact the resources provided to seek inpatient substance dependence treatment Follow-up in the ED for recurrent hallucinations/sweats/tremors or other symptoms or signs of alcohol withdrawal Discharge orders & Medications Prescriptions: New folic acid 1 mg Tablet 1 mg PO DAILY Qty: 30 0RF thiamine mononitrate (vit B1) 100 mg Tablet 100 mg PO DAILY Qty: 30 0RF multivitamin with folic acid [Tab-A-Barak] 400 mcg Tablet 1 tab PO DAILY Qty: 30 0RF Follow up/Referrals: Camila Alfaro MD [Primary Care Provider] - Diet/Activity/Treatments Diet: Regular Activity: As tolerated Oxygen: N/A Discharge Data Primary Care Provider: Camila Alfaro
== END 2022-05-02 16:00 | disposition home or self-care (01) | DRG 775 ==
LOC: ED 21:47 → AC 04-30 00:27 → ICU 04-30 01:37
PROVIDERS: Family Medicine; Internal Medicine Pulmonary Disease; Admitting Provider Internal Medicine; Emergency Provider Emergency Medicine; PCP Internal Medicine; Referring Provider Emergency Medicine; Visit Provider Internal Medicine
DX: F10.231 Alcohol dependence with withdrawal delirium (principal); K70.10 Alcoholic hepatitis without ascites; F17.200 Nicotine dependence, unspecified, uncomplicated; E83.39 Other disorders of phosphorus metabolism; D69.59 Other secondary thrombocytopenia; Y90.0 Blood alcohol level of less than 20 mg/100 ml; Z20.822 Contact with and (suspected) exposure to COVID-19
CPT/HCPCS: 36415; 80048; 80053; 80076; 80305; 80320; 83690; 83735; 84100; 85025; 87635; 87797; 96365; 96375; 96376; 99284; C9803; J1650; J2560; J3475